=== PATIENT | male | born 1985 | race Caucasian/White ===

== ENCOUNTER 2017-01-30 10:54 | Day surgery (SDC) | payer OTHER ==
[2017-01-30 11:19] VITALS: BMI 21.9
[2017-01-30 11:50] VITALS: BP 174/90; PULSE 90; TEMP 98
[2017-01-30] MEDS ORDERED: TETRACAINE/BENZOCAINE/BUTAMBEN 20 GM SPR TP ONE (12:32)
== END 2017-01-30 13:35 | disposition home or self-care (01) ==
LOC: JASU-ENDO 10:54
PROVIDERS: ATTEND Internal Medicine Gastroenterology
PROC: 8E0KXY7 Examination of Musculoskeletal System (ICD-10-PCS; principal; 2017-01-30 12:00)
DX: Z53.8 Procedure and treatment not carried out for other reasons (principal)

== ENCOUNTER 2017-03-24 20:13 | Emergency (ER) | payer OTHER ==
[2017-03-24] MEDS ORDERED: DEXTROSE 50%-WATER 50 ML VIAL IVPUSH ONE ×2 (20:19→22:13)
--- NOTE | 2017-03-24 20:28 | PDOC ---
History of Present Illness - General Stated Complaint: LOW BLOOD SUGAR Time Seen by Provider: 03/24/17 20:26 History Source: Patient Exam Limitations: No Limitations - History of Present Illness Initial Comments: 03/24/17 23:45 31-year-old male brought in by ambulance after a syncopal episode from hypoglycemia. Patient's states he was complaining of hypoglycemia when he syncopized at home. His initial glucose level was 20 via EMS. Patient was given D10 by EMS, levels came up to 50 in the emergency department. Patient was given D50 50 mL. Patient became a and O 3 within minutes. Patient denies any headache , dizziness, lightheadedness, neck pain, back pains, chest pain, shortness of breath, abdominal pains, extremity numbness or tingling sensation. Patient denies any complaints. Patient is adamant about being discharged approximately one hour after being seen in the emergency department. Patient refused the ER's glucometer glucose check but insisted on using his own. His glucose was 40. He was given another amp of D50/50 mL. Patient states he feels fine and insists on going home. Patient refuses to have a repeat glucose check. Patient understands that his blood work is not within the normal range. Patient states he clearly understands and insists on either going AMA or pulling on his own intravenous line and walking out. Timing/Duration: 1/2 hour Associated Symptoms: reports: denies symptoms Past History - Travel Traveled outside of the country in the last 30 days: No Close contact w/someone who was outside of country & ill: No - Past Medical History Allergies/Adverse Reactions: Allergies Allergy/AdvReac Type Severity Reaction Status Date / Time No Known Allergies Allergy Verified 03/24/17 20:28 Home Medications: Ambulatory Orders Insulin Glargine,Hum.rec.anlog [Lantus (nf)] 15 units SQ HS 10/21/16 Levothyroxine [Synthroid -] 150 mcg PO DAILY 10/21/16 Insulin Sliding Scale [Novolog Vial Sliding Scale -] 0 units SQ ASDIR 01/30/17 Lisinopril/Hydrochlorothiazide [Lisinopril-Hctz 10-12.5 mg Tab] 1 each PO DAILY 02/05/17 Diabetes: Yes (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5) Liver Disease: Yes Thyroid Disease: Yes - Psycho/Social/Smoking Cessation Hx Anxiety: No Suicidal Ideation: No Smoking History: Current every day smoker Have you smoked in the past 12 months: Yes Number of Cigarettes Smoked Daily: 20 'Breaking Loose' booklet given: 01/30/17 Hx Alcohol Use: No Drug/Substance Use Hx: No Substance Use Type: Marijuana Review of Systems - Review of Systems Able to Perform ROS?: Yes Comments:: 03/24/17 20:27 CONSTITUTIONAL: Absent: fever, chills, diaphoresis, generalized weakness, malaise, loss of appetite HEENT: Absent: rhinorrhea, nasal congestion, throat pain, throat swelling, difficulty swallowing, mouth swelling, ear pain, eye pain, visual Changes CARDIOVASCULAR: Absent: chest pain, loss of consciousness, palpitations, irregular heart rate, peripheral edema RESPIRATORY: Absent: cough, shortness of breath, dyspnea with exertion, orthopnea, wheezing, stridor, hemoptysis GASTROINTESTINAL: Absent: abdominal pain, abdominal distension, nausea, vomiting, diarrhea, constipation, melena, hematochezia GENITOURINARY: Absent: dysuria, frequency, urgency, hesitancy, hematuria, flank pain, genital pain MUSCULOSKELETAL: Absent: myalgia, arthralgia, joint swelling SKIN: Absent: rash, itching, pallor HEMATOLOGIC/IMMUNOLOGIC: Absent: easy bleeding, easy bruising, lymphadenopathy, frequent infections ENDOCRINE: Absent: unexplained weight gain, unexplained weight loss, heat intolerance, cold intolerance NEUROLOGIC: Absent: headache, focal weakness or paresthesias, dizziness, unsteady gait, seizure, mental status changes, bladder or bowel incontinence PSYCHIATRIC: Absent: anxiety, depression, suicidal or homicidal ideation, hallucinations. Is the patient limited Azerbaijani proficient: No ED Treatment Course - LABORATORY CBC & Chemistry Diagram: 03/24/17 21:55 03/24/17 21:55 *DC/Admit/Observation/Transfer Diagnosis at time of Disposition: Hypoglycemia - Discharge Dispostion Disposition: AGAINST MEDICAL ADVICE - Referrals Referrals: Maki Zimmerman MD [Primary Care Provider] - - Patient Instructions Printed Discharge Instructions: DI for Hypoglycemia Additional Instructions: You signed an AMA form which is AGAINST MEDICAL ADVICE. My advice is to have you admitted or at best continuous monitoring in the emergency department. You presented to the emergency department via ambulance with a blood glucose of 21. After we gave you 50 mL of dextrose, your blood sugar only rised to 50. You refused to stay in the emergency department and wish to be discharged AGAINST MEDICAL ADVICE. You insists on using your own glucometer upon your AMA discharge , one hour ago. Your personal glucometer shows that-your glucose level is at 40. Again, we gave you medicine. You insisting to be discharged without having a repeat glucose level checked in the emergency department. You have been strongly advised of some the risks and complications. You have to return back to the emergency department for repeat symptoms, worsening or severe discomfort.
[2017-03-24 20:31] VITALS: BMI 22.7
--- NOTE | 2017-03-24 20:58 | PDOC ---
*Physical Exam - Vital Signs Last Vital Signs Temp Pulse Resp BP Pulse Ox 97.5 F L 85 18 139/90 100 03/24/17 20:29 03/24/17 20:29 03/24/17 20:29 03/24/17 20:29 03/24/17 20:29 ED Treatment Course - LABORATORY CBC & Chemistry Diagram: 03/24/17 21:55 03/24/17 21:55 - Medications Given in the ED: ED Medications Discontinued Medications Generic Name Dose Route Start Last Admin Trade Name Ju PRN Reason Stop Dose Admin Dextrose 50 ml 03/24/17 20:19 03/24/17 20:31 D50w (Vial) - IVPUSH 03/24/17 20:20 50 ml NOW ONE Administration Medical Decision Making - Medical Decision Making 03/24/17 20:50 This is a 31 yo M with a history of insulin dependent diabetes mellitus presenting to the ER via EMS due to hypoglycemia and AMS Last meal 2pm Pt did not try to take any food or drink Pt seen by Midlevel Provider under my direct supervision Pt interviewed and examined Ancillary studies reviewed I agree with plan as outlined by Midlevel Provider 03/24/17 23:17 Pt does not want to stay in the hospital He is leaving AMA Pt seen by Midlevel Provider under my direct supervision Ancillary studies reviewed I agree with plan as outlined by Midlevel Provider 03/24/17 23:19 Laboratory Tests 02/05/17 03/24/17 16:24 21:55 WBC 19.1 H D 25.0 H D Hgb 11.8 D 10.0 L D Hct 36.0 31.3 L Plt Count 360 314 Note: The patient insists on leaving the emergency dept and is signing out against medical advice. The patient understands the risks and complications that may result from the refusal of medical care and admission which includes and permanent disability. The patient has the mental capacity of understanding the risks of refusing care and is capable of making an informed decision. The patient was instructed to return to the emergency department should he change his mind regarding medical care or should his condition worsen. The patient signed the Against Medical Advice form. *DC/Admit/Observation/Transfer Diagnosis at time of Disposition: Hypoglycemia - Discharge Dispostion Disposition: AGAINST MEDICAL ADVICE Admit: No - Referrals Referrals: Maki Zimmerman MD [Primary Care Provider] - - Patient Instructions Printed Discharge Instructions: DI for Hypoglycemia Additional Instructions: You signed an AMA form which is AGAINST MEDICAL ADVICE. My advice is to have you admitted or at best continuous monitoring in the emergency department. You presented to the emergency department via ambulance with a blood glucose of 21. After we gave you 50 mL of dextrose, your blood sugar only rised to 50. You refused to stay in the emergency department and wish to be discharged AGAINST MEDICAL ADVICE. You insists on using your own glucometer upon your AMA discharge , one hour ago. Your personal glucometer shows that-your glucose level is at 40. Again, we gave you medicine. You insisting to be discharged without having a repeat glucose level checked in the emergency department. You have been strongly advised of some the risks and complications. You have to return back to the emergency department for repeat symptoms, worsening or severe discomfort.
[2017-03-24 22:08] LABS: MCH 27.2 pg (25.7-33.7); MCHC 31.9 g/dl (32.0-35.9); MEAN CELL VOLUME 85.2 fl (80-96); MEAN PLT VOLUME 8.3 fl (7.5-11.1); PLATELET COUNT 314 K/MM3 (134-434); RDW 14.6 % (11.9-15.9)
[2017-03-24] MEDS ORDERED: DEXTROSE 50%-WATER 50 ML VIAL ONE (22:19)
[2017-03-24 22:54] LABS: PLATELET ESTIMATE ADEQUATE (NORMAL)
[2017-03-24 22:58] LABS: ALBUMIN 3.3 g/dl (3.4-5.0); BILIRUBIN,TOTAL 0.3 mg/dL (0.2-1.0); CALCIUM 8.5 mg/dL (8.5-10.1); COCKROFT - GAULT 51.92; CREATININE 1.9 mg/dL (0.7-1.3); TOT PROT 6.5 g/dl (6.4-8.2)
[2017-03-25 07:02] VITALS: BP 136/88; PULSE 80; TEMP 98
== END 2017-03-25 00:25 | disposition left against medical advice (07) ==
LOC: JER 20:13
PROC: 3E033GC Introduction of Other Therapeutic Substance into Peripheral Vein, Percutaneous Approach (ICD-10-PCS; principal; 2017-03-24)
DX: E10.649 Type 1 diabetes mellitus with hypoglycemia without coma (principal); Z79.4 Long term (current) use of insulin; F17.210 Nicotine dependence, cigarettes, uncomplicated; E07.9 Disorder of thyroid, unspecified; K76.9 Liver disease, unspecified
CPT/HCPCS: 36415; 80053; 85025; 96374; 96376; 99282-25

== ENCOUNTER 2019-02-08 08:33 | Emergency (ER) | payer OTHER ==
[2019-02-08 08:48] VITALS: TEMP 96.7; BMI 26.6
--- NOTE | 2019-02-08 09:23 | PDOC ---
History of Present Illness - General Chief Complaint: Blood Sugar Problem Stated Complaint: BLOOD SUGAR ISSUES Time Seen by Provider: 02/08/19 08:42 - History of Present Illness Initial Comments: 02/08/19 09:12 Patient is a 33 y/o male with a history of HTN, hypothyroidism, ESRD, CAD and IDDM who presents for hypoglycemia. Patient awoke this morning with a sugar of 480 and took 11 units of humalog. He typically takes 3 units before meals and then uses a sliding scale. After he took the 11 untis he went back to sleep. His daughter tried to wake him up and he was unarousable. EMS found his sugar to be 42. After administering sugar his repeat sugar was 120. Patient has no other complaints. Denies headache, nausea, vomiting, diarrhea, constipation, or chest pain. Patient has dialysis every Monday, and Monday's. Past History - Past Medical History Allergies/Adverse Reactions: Allergies Allergy/AdvReac Type Severity Reaction Status Date / Time No Known Allergies Allergy Verified 05/15/18 15:43 Home Medications: Ambulatory Orders Insulin Glargine,Hum.rec.anlog [Lantus (nf)] 15 units SQ HS 10/21/16 Levothyroxine [Synthroid -] 150 mcg PO DAILY 10/21/16 Insulin Sliding Scale [Novolog Vial Sliding Scale -] 0 units SQ ASDIR 01/30/17 Lisinopril/Hydrochlorothiazide [Lisinopril-Hctz 10-12.5 mg Tab] 1 each PO DAILY 02/05/17 COPD: No Diabetes: Yes (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5) HTN: Yes Liver Disease: Yes Thyroid Disease: Yes - Immunization History Immunization Up to Date: Yes - Suicide/Smoking/Psychosocial Hx Smoking History: Never smoked Have you smoked in the past 12 months: Yes Number of Cigarettes Smoked Daily: 20 'Breaking Loose' booklet given: 01/30/17 Hx Alcohol Use: No Drug/Substance Use Hx: No Substance Use Type: Marijuana Review of Systems - Review of Systems Respiratory: No: Cough, Shortness of Breath Cardiac (ROS): No: Chest Pain ABD/GI: No: Nausea, Vomiting Musculoskeletal: No: Muscle Pain Neurological: No: Headache, Numbness, Tingling *Physical Exam - Vital Signs Last Vital Signs Temp Pulse Resp BP Pulse Ox 96.7 F L 85 17 143/69 93 L 02/08/19 08:45 02/08/19 08:45 02/08/19 08:45 02/08/19 08:45 02/08/19 08:45 - Physical Exam Comments: 02/08/19 09:23 GENERAL: A&O x3. no acute distress, thin ENT: moist mucus membranes CHEST: RRR, no murmurs, rubs, or gallops, sternal scar LUNGS: CTAL B/L ABD: soft, nondistended, normal bowel sounds EXTREMITIES: no edema, RUE dialysis shunt NEURO: CN II-XII, gait not observed SKIN: no rash or ulcers Moderate Sedation - Procedure Monitoring Vital Signs: Procedure Monitoring Vital Signs Temperature 96.7 F L 02/08/19 08:45 Pulse Rate 85 02/08/19 08:45 Respiratory Rate 17 02/08/19 08:45 Blood Pressure 143/69 02/08/19 08:45 O2 Sat by Pulse Oximetry (%) 93 L 02/08/19 08:45 ED Treatment Course - LABORATORY CBC & Chemistry Diagram: 02/08/19 10:03 02/08/19 10:03 *DC/Admit/Observation/Transfer Diagnosis at time of Disposition: Hypoglycemia - Discharge Dispostion Disposition: HOME - Referrals - Patient Instructions Printed Discharge Instructions: DI for Hypoglycemia Additional Instructions: You came to the Emergency Department because you were found to have low blood sugar. We have monitored you and you are stable to go home at this time. Please us the correct amount of insulin as per your sliding scale. Please make an appointment to follow up with your Senior Research Manager. Please return to the Emergency Department if you have any new feelings of nausea , vomiting, dizziness, lightheadedness, or chest pain. - Post Discharge Activity
[2019-02-08 10:21] LABS: BASO % 1.1 % (0-2.0); EOS % 1.6 % (0-4.5); HEMATOCRIT 32.2 % (35.4-49); HEMOGLOBIN 10.7 GM/dL (11.7-16.9); LYMPH % 7.9 % (8-40); MCH 29.6 pg (25.7-33.7); MCHC 33.4 g/dl (32.0-35.9); MEAN CELL VOLUME 88.7 fl (80-96); MEAN PLT VOLUME 7.1 fl (7.5-11.1); MONO % 11.4 % (3.8-10.2); PLATELET COUNT 392 K/MM3 (134-434); RBC 3.63 M/mm3 (4.00-5.60); RDW 19.5 % (11.9-15.9); WHITE BLOOD COUNT 10.6 K/mm3 (4.0-10.0)
--- NOTE | 2019-02-08 10:23 | PDOC ---
Attending Attestation - Resident Resident Name: Darlin Molina - ED Attending Attestation I have performed the following: I have examined & evaluated the patient, The case was reviewed & discussed with the resident, I agree w/resident's findings & plan, Exceptions are as noted - HPI HPI: 02/08/19 10:17 33 m with h/o HTN, hypothyroidism, ESRD, CAD and IDDM, presents to ED after being found unresponsive at home. Pt was found to have fingerstick in 40s by EMS. Was given D50 with subsequent return to baseline. Pt in ED is awake and alert, fully oriented. States that he measured his blood sugar to be in the 400s this morning. He took 11u of short acting insulin and went back to sleep. Pt was found by his girlfriend unresponsive in bed this morning, and EMS was activated. Pt currently states he feels back to normal. Denies any complaints. States that this has happened on multiple occasions when he takes extra insulin without eating. - Physicial Exam PE: 02/08/19 10:23 "GENERAL: Awake, alert, and fully oriented, in no acute distress. HEAD: No signs of trauma EYES: PERRLA, EOMI, sclera anicteric, conjunctiva clear ENT: Auricles normal inspection, hearing grossly normal, nares patent, oropharynx clear without exudates. Moist mucosa NECK: Nontender, no stepoffs, Normal ROM, supple, no lymphadenopathy, JVD, or masses LUNGS: Breath sounds equal, clear to auscultation bilaterally. No wheezes, and no crackles HEART: Regular rate and rhythm, normal S1 and S2, no murmurs, rubs or gallops ABDOMEN: Soft, nontender, normoactive bowel sounds. No guarding, no rebound. No masses EXTREMITIES: Normal range of motion, no edema. No clubbing or cyanosis. No cords, erythema, or tenderness NEUROLOGICAL: Cranial nerves II through XII intact. 5/5 strength and sensation in all extremities, Normal speech, normal gait, normal cerebellar function SKIN: Warm, Dry, normal turgor, no rashes or lesions noted. - Medical Decision Making 02/08/19 10:23 33 M with transient unresponsiveness, likely 2/2 hypoglycemia. Pt now back to baseline mentation. Fingerstick wnl after receiving dextrose in the field. Pt took 11u short acting insulin this morning, at approx 4am. Should be cleared by this time. Will feed and monitor fingerstick in ED. - Labs - Feed - Recheck fingerstick 02/08/19 10:48 Labs wnl Repeat fingerstick wnl Pt continues to have normal mental status, normal sugar Pt is well appearing, with normal vitals. Clinically stable for DC at this time. I discussed the physical exam findings, ancillary test results and final diagnoses with the patient. I answered all of the patient's questions. The patient was satisfied with the care received and felt comfortable with the discharge plan and treatment plan. The patient agrees to follow up with the primary care physician within 24-72 hours.
[2019-02-08 10:45] LABS: ALBUMIN 3.5 g/dl (3.4-5.0); ALK PHOS 169 U/L (45-117); ANION GAP 7 MMOL/L (8-16); BILIRUBIN,TOTAL 0.2 mg/dL (0.2-1); BLOOD UREA NITROGEN 27 mg/dL (7-18); CALCIUM 8.2 mg/dL (8.5-10.1); CHLORIDE 100 mmol/L (98-107); CO2 31 mmol/L (21-32); CREATININE 5.1 mg/dL (0.55-1.3); GLUCOSE,RANDOM 128 mg/dL (74-106); POTASSIUM 4.1 mmol/L (3.5-5.1); SGOT/AST 56 U/L (15-37); SGPT/ALT 52 U/L (13-61); SODIUM 138 mmol/L (136-145); TOT PROT 7.3 g/dl (6.4-8.2)
[2019-02-08 10:53] VITALS: BP 140/99; PULSE 78
--- NOTE | 2019-02-09 18:10 | EKG ---
Test Reason : Blood Pressure : / mmHG Vent. Rate : 084 BPM Atrial Rate : 084 BPM P-R Int : 152 ms QRS Dur : 090 ms QT Int : 426 ms P-R-T Axes : 070 038 053 degrees QTc Int : 503 ms NORMAL SINUS RHYTHM PROLONGED QT ABNORMAL ECG WHEN COMPARED WITH ECG OF 15-MAY-2018 15:56, NO SIGNIFICANT CHANGE WAS FOUND Confirmed by MD CHRIS, IVETTE ([id number]) on 02/09/2019 6:09:40 PM Referred By: Confirmed By:IVETTE PEREZ MD
== END 2019-02-08 11:13 | disposition home or self-care (01) ==
LOC: JER 08:33
DX: E10.69 Type 1 diabetes mellitus with other specified complication (principal); Z79.4 Long term (current) use of insulin; E16.2 Hypoglycemia, unspecified; K76.9 Liver disease, unspecified; E07.9 Disorder of thyroid, unspecified; E10.22 Type 1 diabetes mellitus with diabetic chronic kidney disease; I12.0 Hypertensive chronic kidney disease with stage 5 chronic kidney disease or end stage renal disease; N18.6 End stage renal disease
CPT/HCPCS: 36415; 80053; 82962; 85025; 93005; 93010; 99284-25

== ENCOUNTER 2019-02-21 09:09 | Emergency (ER) | payer OTHER ==
[2019-02-21 09:19] VITALS: BP 150/82; PULSE 81; TEMP 97.3; BMI 23.3
--- NOTE | 2019-02-21 09:30 | PDOC ---
Attending Attestation - Resident Resident Name: Alexander Barbour - [facility] HPI: 02/21/19 09:41 The patient is a 33 year old male, with a significant past medical history of HTN, hypothyroidism, CAD s/p CABG, IDDM, who presents to the emergency department via ems for being found by the passed out on the floor. The patient states he took novalog at 4am went back to sleep without eating. As per ems, the patients blood glucose was 30 on arrival and D50 was given in route to the ED. The patient states he has been taking his medication as directed. The patient denies chest pain, shortness of breath, headache and dizziness. The patient denies fever, chills, nausea, vomit, diarrhea and constipation. The patient denies dysuria, frequency, urgency and hematuria. Allergies: NKDA - Physicial Exam PE: 02/21/19 10:45 GENERAL: Awake, alert, and fully oriented, in no acute distress HEAD: No signs of trauma EYES: PERRLA, EOMI, sclera anicteric, conjunctiva clear ENT: Auricles normal inspection, hearing grossly normal, nares patent, oropharynx clear without exudates. Moist mucosa NECK: Normal ROM, supple, no lymphadenopathy, JVD, or masses LUNGS: Breath sounds equal, clear to auscultation bilaterally. No wheezes, and no crackles HEART: Regular rate and rhythm, normal S1 and S2, no murmurs, rubs or gallops ABDOMEN: Soft, nontender, normoactive bowel sounds. No guarding, no rebound. No masses EXTREMITIES: Normal range of motion, no edema. No clubbing or cyanosis. No cords, erythema, or tenderness NEUROLOGICAL: Cranial nerves II through XII grossly intact. Normal speech, normal gait SKIN: Warm, Dry, normal turgor, no rashes or lesions noted. <Viry Knapp - Last Filed: 02/21/19 10:45> - Medical Decision Making 02/21/19 11:39 Pt presents to the ED complaining of hypoglycemia after taking novalog at 4 am and falling back asleep instead of eating. Denies other complaints. Fingerstick now 77 after d 5o and eatng. Last dose of insulin was 7 hours ago. Patient anxious to leave to go to HD--requesting to leave before labs are back. Will allow patient to leave and call if results are abnormal. <Joanne Abad - Last Filed: 02/21/19 11:44> Attestations - Attestations 02/21/19 09:42 Documentation prepared by Viry Knapp, acting as director of medical services for Joanne Abad MD <Viry Knapp - Last Filed: 02/21/19 10:45>
[2019-02-21] MEDS ORDERED: DEXTROSE 50%-WATER - 25 GM/50 ML VIAL IVPUSH ONE (09:37)
[2019-02-21] MEDS ORDERED: DEXTROSE 50%-WATER - 25 GM/50 ML VIAL ONE (09:39)
--- NOTE | 2019-02-21 09:59 | PDOC ---
History of Present Illness - General Chief Complaint: Blood Sugar Problem Stated Complaint: BLOOD SUGAR ISSUEES Time Seen by Provider: 02/21/19 09:30 - History of Present Illness Initial Comments: The pt is a 33M w/ a history of IDDM who presents for evaluation of hypoglycemia. The pt reports taking his prescribed Lantus 15u at 2130 or 2200 last night and Novolog 5u at 0400 today. He then went back to sleep which is his usual habit. Pt's then reports pt was difficult to arouse and called EMS. Per EMS pt's BG was 30 on arrival and 200s s/p dextrose. On arrival pt feels confused but denies recent illness/fevers. Denies pain or other complaints. Reports no change in eating habits and has been taking medications as prescribed. 02/21/19 10:01 Past History - Past Medical History Allergies/Adverse Reactions: Allergies Allergy/AdvReac Type Severity Reaction Status Date / Time No Known Allergies Allergy Verified 02/21/19 09:19 Home Medications: Ambulatory Orders Levothyroxine [Synthroid -] 175 mcg PO DAILY 10/21/16 Insulin Sliding Scale [Novolog Vial Sliding Scale -] 0 units SQ ASDIR 01/30/17 Aspirin 81 mg PO DAILY 02/21/19 Atorvastatin Ca [Lipitor] 40 mg PO HS 02/21/19 Carvedilol [Coreg -] 25 mg PO BID 02/21/19 Furosemide [Lasix -] 40 mg PO BID 02/21/19 Hydralazine HCl 25 mg PO TID 02/21/19 Insulin Degludec [Tresiba] 15 unit SQ ASDIR 02/21/19 Isosorbide Dinitrate [Isordil -] 10 mg PO TID 02/21/19 Nifedipine [Nifedipine ER] 90 mg PO DAILY 02/21/19 COPD: No Diabetes: Yes (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5) HTN: Yes Liver Disease: Yes Thyroid Disease: Yes - Immunization History Immunization Up to Date: Yes - Suicide/Smoking/Psychosocial Hx Smoking History: Unknown if ever smoked Have you smoked in the past 12 months: Yes Number of Cigarettes Smoked Daily: 20 'Breaking Loose' booklet given: 01/30/17 Hx Alcohol Use: No Drug/Substance Use Hx: No Substance Use Type: Marijuana Review of Systems - Review of Systems Able to Perform ROS?: Yes Comments:: GENERAL/CONSTITUTIONAL: No fever or chills HEAD, EYES, EARS, NOSE AND THROAT: No change in vision. No ear pain or discharge. No sore throat CARDIOVASCULAR: No chest pain or shortness of breath RESPIRATORY: Denies cough, hemoptysis GASTROINTESTINAL: No nausea, vomiting, diarrhea or constipation GENITOURINARY: No dysuria, frequency, or change in urination MUSCULOSKELETAL: No joint or muscle swelling or pain. No neck or back pain SKIN: No rash NEUROLOGIC: No headache, vertigo, or change in strength/sensation ENDOCRINE: No increased thirst. No abnormal weight change HEMATOLOGIC/LYMPHATIC: No anemia, easy bleeding, or history of blood clots ALLERGIC/IMMUNOLOGIC: No hives or skin allergy Is the patient limited Setswana proficient: No *Physical Exam - Vital Signs Last Vital Signs Temp Pulse Resp BP Pulse Ox 97.3 F L 81 16 150/82 96 02/21/19 09:17 02/21/19 09:17 02/21/19 09:17 02/21/19 09:17 02/21/19 09:17 - Physical Exam Comments: GENERAL: Awake, alert, and oriented to person/place, tired appearing HEAD: No signs of trauma, normocephalic, atraumatic EYES: PERRLA, EOMI, sclera anicteric, conjunctiva clear ENT: Hearing grossly normal, nares patent, oropharynx clear without exudates. Moist mucosa LUNGS: No distress, speaks full sentences, clear to auscultation bilaterally HEART: Regular rate and rhythm, normal S1 and S2, no murmurs appreciated, peripheral pulses normal and equal bilaterally ABDOMEN: Soft, nontender, normoactive bowel sounds. No guarding, no rebound EXTREMITIES: Normal inspection, Normal range of motion, no edema. No clubbing or cyanosis NEUROLOGICAL: Cranial nerves II through XII grossly intact. Normal speech, no focal sensorimotor deficits SKIN: Warm, Dry ED Treatment Course - LABORATORY CBC & Chemistry Diagram: 02/21/19 10:30 02/21/19 10:30 Medical Decision Making - Medical Decision Making The pt is a 33M w/ a history of IDDM who presents for evaluation of hypoglycemia. Pt hypoglycemic to 33, will give 1 amp of D-50 BG improved to 77, will give pt a sandwich/juice Plan for D/C so pt can make it to dialysis today, will call if pt w/ abnormal labs Pt ambulating w/ stable gait in ED, oriented x3, pt feels better after dextrose and food Discharge instructions and return precautions given Pt in agreement and verbalized understanding Dispo: home 02/21/19 13:10 No significant lab abn. *DC/Admit/Observation/Transfer Diagnosis at time of Disposition: Hypoglycemia - Discharge Dispostion Disposition: HOME Condition at time of disposition: Improved Decision to Admit order: No - Referrals Referrals: [facility] [place] [facility] [Provider Group] - Patient Instructions Printed Discharge Instructions: DI for Hypoglycemia Additional Instructions: You were seen in the Emergency Department for evaluation of low blood sugar. You were treated with dextrose (sugar). Your repeat blood sugar was 77. Review the handout provided at discharge. Be sure to eat something before dialysis as well. Follow up with your primary care provider within a week. Return to the Emergency Department if you develop fevers/chills, chest pain, trouble breathing , abdominal pain, nausea/vomiting, confusion, weakness, worsening symptoms, or any new/concerning symptoms. - Post Discharge Activity
[2019-02-21 11:00] LABS: MCH 29.2 pg (25.7-33.7); MCHC 32.2 g/dl (32.0-35.9); MEAN CELL VOLUME 90.8 fl (80-96); MEAN PLT VOLUME 7.6 fl (7.5-11.1); PLATELET COUNT 336 K/MM3 (134-434); RBC 3.75 M/mm3 (4.00-5.60); RDW 21.7 % (11.9-15.9); WHITE BLOOD COUNT 10.3 K/mm3 (4.0-10.0)
[2019-02-21 11:27] LABS: ALBUMIN 3.5 g/dl (3.4-5.0); ALK PHOS 156 U/L (45-117); ANION GAP 10 MMOL/L (8-16); BILIRUBIN,TOTAL 0.2 mg/dL (0.2-1); BLOOD UREA NITROGEN 52 mg/dL (7-18); CALCIUM 7.9 mg/dL (8.5-10.1); CHLORIDE 100 mmol/L (98-107); CO2 28 mmol/L (21-32); GLUCOSE,RANDOM 77 mg/dL (74-106); POTASSIUM 4.2 mmol/L (3.5-5.1); SGOT/AST 35 U/L (15-37); SGPT/ALT 33 U/L (13-61); SODIUM 138 mmol/L (136-145); TOT PROT 7.2 g/dl (6.4-8.2)
[2019-02-21 11:51] LABS: CREATININE 7.4 mg/dL (0.55-1.3)
[2019-02-22 03:15] LABS: HBsAG SCREEN Negative (Negative)
== END 2019-02-21 11:09 | disposition home or self-care (01) ==
LOC: JER 09:09
PROC: 3E033GC Introduction of Other Therapeutic Substance into Peripheral Vein, Percutaneous Approach (ICD-10-PCS; principal; 2019-02-21)
DX: E10.649 Type 1 diabetes mellitus with hypoglycemia without coma (principal); Z79.4 Long term (current) use of insulin; I10 Essential (primary) hypertension; E03.9 Hypothyroidism, unspecified; K76.9 Liver disease, unspecified
CPT/HCPCS: 36415; 80053; 82962; 85027; 86317; 86706; 86803; 87340; 87389; 99282-25

== ENCOUNTER 2019-12-13 18:53 | Emergency (ER) | payer OTHER ==
[2019-12-13] MEDS ORDERED: DEXTROSE 50%-WATER - 25 GM/50 ML VIAL IVPUSH ONE ×3 (19:11→21:40)
[2019-12-13] MEDS ORDERED: DEXTROSE 50%-WATER 25 GM/50 ML DISP.SYRIN ONE ×2 (19:12→19:13)
--- NOTE | 2019-12-13 19:51 | PDOC ---
History of Present Illness - General Chief Complaint: Blood Sugar Problem Stated Complaint: DIABETIC EMERGENCY Time Seen by Provider: 12/13/19 19:50 History Source: Patient Exam Limitations: No Limitations - History of Present Illness Initial Comments: 12/13/19 19:50 PCP: Dr. Owusu HPI: 34yo M PMH IDDM, ESRD, HTN, hypothyroidism, and CAD presenting s/p syncope at work with hypoglycemia (BGM 26). Patient reports forgetting to eat since dinner last night. At work at [employer] had a syncopal episode, found to have BGM 26, diaphoretic. Denies any recent illnesses, fevers, chills, nausea, vomiting, chest pain, cough, sick contacts. Endorses taking all of his medications as prescribed. BGM improved s/p D50 in the field. BGM 33 here on repeat, then increased to >200 s/p D50x2 administration. Feels entirely normal at time of my exam, not confused, hungry. At baseline per at bedside. All: NKDA Meds: Per chart PMH: As above PSH: Triple bypass Past History - Travel Traveled outside of the country in the last 30 days: No Close contact w/someone who was outside of country & ill: No - Past Medical History Allergies/Adverse Reactions: Allergies Allergy/AdvReac Type Severity Reaction Status Date / Time No Known Allergies Allergy Verified 12/13/19 21:49 Home Medications: Ambulatory Orders Levothyroxine [Synthroid -] 175 mcg PO DAILY 10/21/16 Insulin Sliding Scale [Novolog Vial Sliding Scale -] 0 units SQ ASDIR 01/30/17 Aspirin 81 mg PO DAILY 02/21/19 Atorvastatin Ca [Lipitor] 40 mg PO HS 02/21/19 Carvedilol [Coreg -] 25 mg PO BID 02/21/19 Insulin Degludec [Tresiba] 15 unit SQ ASDIR 02/21/19 COPD: No Diabetes: Yes (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5) HTN: Yes Liver Disease: Yes Thyroid Disease: Yes - Immunization History Immunization Up to Date: Yes - Psycho Social/Smoking Cessation Hx Smoking History: Unknown if ever smoked Have you smoked in the past 12 months: Yes Number of Cigarettes Smoked Daily: 20 'Breaking Loose' booklet given: 01/30/17 Hx Alcohol Use: No Drug/Substance Use Hx: No Substance Use Type: Marijuana Review of Systems - Review of Systems Able to Perform ROS?: Yes Is the patient limited Indonesian proficient: Yes Constitutional: No: Chills, Fever, Malaise, Night Sweats, Weakness HEENTM: No: Blurred Vision, Recent change in vision, Nose Congestion, Throat Pain Respiratory: No: Cough, Shortness of Breath, Stridor, Wheezing Cardiac (ROS): No: Chest Pain, Edema, Irregular Heart Rate, Lightheadedness, Palpitations, Syncope, Chest Tightness ABD/GI: No: Constipated, Diarrhea, Nausea, Poor Appetite, Poor Fluid Intake, Vomiting : No: Burning, Dysuria, Discharge, Frequency Musculoskeletal: No: Back Pain, Muscle Pain, Muscle Weakness Integumentary: No: Dryness, Pallor, Pruritus, Rash Neurological: No: Headache, Numbness, Tingling, Weakness Psychiatric: No: Stressors, Change in Appetite Endocrine: No: Increased Thirst, Increased Urine, Change in Weight Hematologic/Lymphatic: No: Anemia, Blood Clots, Easy Bleeding All Other Systems: Reviewed and Negative *Physical Exam - Physical Exam 12/13/19 20:08 Vitals reviewed, AFVSS GEN: Well appearing, appears stated age, NAD, comfortable. AAOx3. HEENT: NCAT, EOMI, PERRL. Sclera anicteric, noninjected. No facial asymmetry. Moist mucous membranes. Normal voice. Trachea midline. CV: RRR, S1/S2, no murmurs / rubs / gallops appreciated. LUNG: CTAB, normal work of breathing. No wheezes, rales, rhonchi. No cough. Speaking full sentences. GI: Soft, NTND, +BS, no guarding, no rebound. No masses. Neg CVAT b/l. EXTREMITIES: 2+ distal pulses. No LE edema. No obvious deformities of all extremities. SKIN: Cool, recently diaphoretic (damp clothing), no rashes appreciated, non- jaundiced. PSYCH: Normal mood and affect. Cooperative and appropriate. NEURO: CN grossly intact. Moving all extremities well. Normal strength and sensation grossly. ED Treatment Course - LABORATORY CBC & Chemistry Diagram: 12/13/19 19:30 12/13/19 19:30 - ADDITIONAL ORDERS Additional order review: Laboratory Results 12/13/19 12/13/19 19:27 19:09 POC Glucometer 282 33 12/13/19 12/13/19 19:27 19:09 POC Glucometer 282 33 - Medications Given in the ED: ED Medications Discontinued Medications Generic Name Dose Route Start Last Admin Trade Name Ju PRN Reason Stop Dose Admin Dextrose 25 gm 12/13/19 19:11 12/13/19 19:48 D50w (Vial) - IVPUSH 12/13/19 19:12 25 gm NOW ONE Administration Dextrose 25 gm 12/13/19 19:13 12/13/19 19:48 D50w (Vial) - IVPUSH 12/13/19 19:14 25 gm NOW ONE Administration Medical Decision Making - Medical Decision Making 12/13/19 20:12 34yo M PMH IDDM, ESRD, HTN, hypothyroidism, and CAD presenting s/p syncope at work with hypoglycemia in setting of forgetting to eat. History notable for no recent illnesses, no other BGM issues recently, patient not eating since yesterday evening. Exam notable for normal exam, damp clothing / cool skin, otherwise normal with normal vitals and resolved BGM. - Serial BGMs - S/p 2x D50 here - S/p D50 in the field - CBC, CMP - EKG 12/13/19 20:39 - Patient hungry, given juice and sandwich 12/13/19 20:42 - Cr 8.5 - Mild leukocytosis, mild anemia - Glucose 200 on CMP 12/13/19 21:24 - Repeat BGM ordered 12/13/19 21:37 - BGM 46 s/p Amps x2, [place], Juice - Additional juice given, D50 re-dosed Would admit for persistent hypoglycemia Patient resistant to admission, states he will wake up hourly to assess his BGM Patient requested to leave AMA. Patient is determined to be of sound mind and reasoning. The patient fully understands the care they are refusing and the risks associated with leaving before complete medical evaluation as explained by the medical team. The patient has been provided with a discharge summary, return precautions, and the reassurance that the Emergency Department will resume workup if the patient changes their mind. Immediate primary care follow up has been urged. Discharge - Discharge Information Problems reviewed: Yes Clinical Impression/Diagnosis: Hypoglycemia Condition: Improved Disposition: HOME - Admission No - Follow up/Referral - Patient Discharge Instructions Patient Printed Discharge Instructions: DI for Hypoglycemia Additional Instructions: You were seen and evaluated in the ER for hypoglycemia. You chose to leave against medical advice. As discussed, you need to wake up hourly to assess your blood sugar and take sugar / juice as needed to avoid hypoglycemia. Continue to take your medications as prescribed and remember to eat a healthy diabetic diet. Missing meals can result in dangerous changes in your blood sugar. Please follow up with your primary care doctor in the next week for further evaluation. Keep a record of your sugar levels so he can make any necessary medication modifications. Return to the ED for any new or concerning symptoms. You are leaving against medical advice and refusing evaluation and treatment of hypoglycemia. It is essential that you follow up with your primary care physician within the next 1-2 days. Please return to the Emergency Department if you change your mind and wish to continue evaluation of your symptoms or if you experience any of the following: - worsening of your symptoms - chest pain - shortness of breath and/or difficulty breathing - seizure - changes in behavior - lightheadedness, and/or dizziness - severe abdominal pain - severe or bloody vomiting - bloody diarrhea - inability to eat or drink - anything that concerns you - Post Discharge Activity
[2019-12-13 20:06] LABS: EOS % 2.5 % (0-4.5); HEMATOCRIT 33.9 % (35.4-49); LYMPH % 12.9 % (8-40); MCH 30.1 pg (25.7-33.7); MCHC 32.4 g/dl (32.0-35.9); MEAN CELL VOLUME 92.9 fl (80-96); MEAN PLT VOLUME 8.5 fl (7.5-11.1); MONO % 6.2 % (3.8-10.2); NEUT % 76.4 % (42.8-82.8); PLATELET COUNT 248 K/MM3 (134-434); RBC 3.65 M/mm3 (4.00-5.60); RDW 16.1 % (11.9-15.9); WHITE BLOOD COUNT 11.4 K/mm3 (4.0-10.0)
[2019-12-13 20:40] LABS: ALBUMIN 4.3 g/dl (3.4-5.0); BILIRUBIN,TOTAL 0.9 mg/dL (0.2-1); BLOOD UREA NITROGEN 61.3 mg/dL (7-18); CALCIUM 8.4 mg/dL (8.5-10.1); POTASSIUM 4.4 mmol/L (3.5-5.1); TOT PROT 7.4 g/dl (6.4-8.2)
[2019-12-13 20:42] LABS: CREATININE 8.5 mg/dL (0.55-1.3)
[2019-12-13 21:14] VITALS: TEMP 97; BMI 24.3
[2019-12-13] MEDS ORDERED: DEXTROSE 50%-WATER - 25 GM/50 ML VIAL ONE (21:41)
[2019-12-13] MEDS ORDERED: DEXTROSE 5%-0.45% SALINE 1,000 ML IV SCH (21:45)
--- NOTE | 2019-12-13 22:27 | PDOC ---
Documentation entered by Marguerite Adler SCRIBE, acting as scribe for Noelle Clark MD. Noelle Clark MD: This documentation has been prepared by the Vitor alcazar Lincy, SCRIBE, under my direction and personally reviewed by me in its entirety. I confirm that the documentation accurately reflects all work, treatment, procedures, and medical decision making performed by me. Attending Attestation - Resident Resident Name: ZaireTodd - ED Attending Attestation I have performed the following: I have examined & evaluated the patient, The case was reviewed & discussed with the resident, I agree w/resident's findings & plan, Exceptions are as noted - HPI HPI: 12/13/19 20:48 The patient is a 34-year-old male with a past medical history significant for IDDM, ESRD, HTN, hypothyroidism, and CAD who presents to the emergency department with hypoglycemia. The patient reports he was at work today when he had a syncopal episode and was noted to have a BGM of 26. The patient reports he hasnt eaten since last night. Denies fever, chills, cough, chest pain, shortness of breath, nausea, vomiting, urinary symptoms. - Physicial Exam PE: 12/13/19 22:24 awake alert lungs clear bilat heart rrr no mrg ab soft nt nd ext wwp. alert oriented x 3. - Medical Decision Making 12/13/19 22:25 34 yo M h/o esrd, dm on insulin long activing. takes at night. here with hypoglycemic syncope. was 26 givein dextrose by EMs. in ED pt still low sugar 36. given amp dextrose. was given food sandwich. and juice. repeat drop in sugar to 30's. given juice and third am dextrose. pt to be admited. however refusing admission. understand risk of leaving AMA. d/w risk of hypoglycemic in sleep. told will have to check his sugar every hour at home. d/w pt significant other. of decision making capacity. willdc ama.
[2019-12-13 22:32] VITALS: BP 217/102; PULSE 73
--- NOTE | 2019-12-14 13:14 | EKG ---
Test Reason : Blood Pressure : / mmHG Vent. Rate : 067 BPM Atrial Rate : 067 BPM P-R Int : 184 ms QRS Dur : 086 ms QT Int : 478 ms P-R-T Axes : 073 066 070 degrees QTc Int : 505 ms POOR DATA QUALITY, INTERPRETATION MAY BE ADVERSELY AFFECTED SINUS RHYTHM WITH FUSION COMPLEXES PROLONGED QT ABNORMAL ECG WHEN COMPARED WITH ECG OF 08-FEB-2019 08:31, FUSION COMPLEXES ARE NOW PRESENT Confirmed by NEFTALI MEDINA MD ([id number]) on 12/14/2019 1:14:33 PM Referred By: Confirmed By:NEFTALI MEDINA MD
== END 2019-12-13 22:38 | disposition left against medical advice (07) ==
LOC: SUPCPDRO 18:53 → JER 18:53
PROC: 3E0337Z Introduction of Electrolytic and Water Balance Substance into Peripheral Vein, Percutaneous Approach (ICD-10-PCS; principal; 2019-12-13)
DX: E10.649 Type 1 diabetes mellitus with hypoglycemia without coma (principal); Z79.4 Long term (current) use of insulin; I13.11 Hypertensive heart and chronic kidney disease without heart failure, with stage 5 chronic kidney disease, or end stage renal disease; E10.22 Type 1 diabetes mellitus with diabetic chronic kidney disease; N18.6 End stage renal disease; N17.8 Other acute kidney failure; Z99.2 Dependence on renal dialysis; E03.9 Hypothyroidism, unspecified
CPT/HCPCS: 36415; 71045-TC-FY; 80053; 82962; 85025; 93005; 93010; 96374; 96376; 99283-25